=== PATIENT | male | born 1955 | race Caucasian/White ===

== ENCOUNTER 2019-09-09 13:50 | Day surgery (SDC) | payer OTHER, SELFPAY ==
[2019-09-09] VITALS (8 sets, daily range): BP systolic 120–142; BP diastolic 69–84; PULSE 65–74; RESP 10–16; TEMP 36–36.4; O2SAT 94–99; BMI 32.3
--- NOTE | 2019-09-09 | DI.RAD.S_ITS ---
PROCEDURE: XR ABDOMEN MIN 2V INDICATIONS: LEFT URETEROSCOPYIC LASER LITHOTRIPSY TECHNIQUE: 2 views of the abdomen were acquired. COMPARISON: None. FINDINGS: Spot fluoroscopic images demonstrating contrast opacified left renal collecting system and ureter. Screw fixation of the left sacroiliac joint noted. Dictated by: Kolby Leger M.D. on 09/10/2019 at 9:39 Approved by: Kolby Leger M.D. on 09/10/2019 at 9:40
--- NOTE | 2019-09-09 | PATH_ITS ---
[facility] Accession Number: [id number] . 01 Material submitted: . bladder - BLADDER STONES . 02 Diagnosis: Bladder Stones: Scant strips of superficial urothelium. Multiple calculi identified grossly. No evidence of neoplasm. MRV 09/11/2019 1201 Local . 02 Electronically signed: . Arian Goldman MD, PhD, Pathologist NPI- [id number] . 01 Gross description: . Received in formalin and labeled with bladder stones are multiple fragments of alex, hard, friable material measuring 1.6 x 1.0 x 0.4 cm in aggregate. The material is entirely submitted in aggregate in cassette A1. Prior to processing, the material will be placed in decal solution for 30 minutes. ([id number]) /MRV 09/10/2019 0920 Local . 02 Pathologist provided ICD-10: N10 . 02 CPT . 360236, [id number] Performed at: 01 [facility] [address], [place], [place] [id number] MD Santiago Singleton MD Phone: [phone] Performed at: 02 [facility] [address] [place], [place] [id number] MD Abigail Matute MD Phone: [phone]
--- NOTE | 2019-09-09 14:15 | DI.RAD.S_ITS ---
PROCEDURE: XR KUB INDICATIONS: pre op TECHNIQUE: One view of the abdomen acquired. COMPARISON: [facility], CR, XR ABDOMEN 1 VIEW, 08/28/2019, 12:53. FINDINGS: Surgical changes and devices: None. Bowel: Bowel gas pattern is normal. Soft tissues: No suspicious abdominal calcifications. Previously documented bladder calculus is now shifted to the right of midline when compared to prior plain film imaging 08/28/19. The bladder calculus measures an estimated 7 x 13 mm. Visualized solid organ contours appear normal in size. Bones: No suspicious bony lesions. IMPRESSION: A transverse screw crosses the left sacroiliac joint, and a previously identified bladder calculus also seen by CT scanning 08/16/19 is again seen within the bladder lumen, and a deviated from the midline rightward Dictated by: Yrn Broderick M.D. on 09/09/2019 at 14:56 Approved by: Yrn Broderick M.D. on 09/09/2019 at 14:58
--- NOTE | 2019-09-09 16:08 | PM.PREOP ---
Pre-operative Note Interval Note History & Physical reviewed/Exam performed by Physician: Yes Changes to H&P: No
[2019-09-09] MEDS: CEFAZOLIN 2 GM/100 ML FROZ.PIGGY IV (16:50)
--- NOTE | 2019-09-09 17:09 | SUR.OPER ---
Lithotomy on padded OR bed, head on pillow, arms secured on padded arm boards at <90 degrees abduction. Legs secured in padded yellow fins stirrups.
[2019-09-09] MEDS: IOPAMIDOL 15 ML VIAL INJ (17:52)
[2019-09-09] MEDS: BELLADONNA/OPIUM SUPPOSITORIES 1 EACH PR (18:16)
--- NOTE | 2019-09-09 18:18 | PM.OP.1 ---
Operative Date/Time/Diagnoses Date of procedure: 09/09/19 Time of procedure: 18:18 Pre-op diagnosis: 1. Mid left ureteral calculus. 2. Bladder calculus. Post-op diagnosis: same Procedure & Clinicians Procedure: 1. Cystoscopy and left retrograde pyelogram. 2. Cystoscopy and left ureteroscopic laser lithotripsy. 3. Cystoscopy and laser lithotripsy bladder calculus. Same procedure as scheduled: No (Left retrograde pyelogram performed due to non vis. on preop KUB) Indications: 1. Obstructing mid left ureteral calculus. 2. Bladder calculus. Surgeon: Sonia Hernandez Click Yes if Unassisted: Yes Anesthesia Type: General Operative Notes Findings: 1. Urethra-normal 2. External sphincter-coapted. 3. Prostate 4 cm length with moderate lateral lobe hyperplasia and a high median bar. 4. Bladder 1+ trabeculation with mulberry morphology bladder calculus Jimmy dependently. 5. Left retrograde pyelogram revealed minimal hydronephrosis and suggestion of a radial lucent density just above the transverse screw seen in AP view. 6. Left ureteroscopy indeed identified the index calculus at suspicious location seen on left retrograde pyelogram. Closure Type: not applicable Specimen(s): other (Fragments of bladder calculus.) Estimated Blood Loss (mL): 0 Blood products transfused: none Tourniquet time (min): 0 Procedure in detail: The patient was positioned supine and administered general anesthesia. He was then repositioned semi lithotomy in the lower abdomen genitalia and groin were prepped and draped in sterile fashion. The 22 Malaysian panendoscope was then passed into the lower urinary tract with findings as described above. A 5 Malaysian whistle-tip catheter was then advanced into the left ureteral orifice under direct fluoroscopic guidance. Left retrograde pyelogram was then performed with findings as described above. The whistle-tip catheter was then removed and a 0.35 guidewire was then advanced into the left collecting system under direct and fluoroscopic guidance. Over the wire a 12 Malaysian by 4 cm balloon dilating catheter was positioned across the left ureteropelvic junction. The balloon was inflated to 18 atmospheres and held in position for 5 minutes. Balloon was then deflated and backloaded off the wire in the saeed endoscope was removed. The semi rigid ureteral scope was then introduced into the lower urinary tract and advanced into the left ureter under direct and fluoroscopic guidance with the finding of the calculus where indicated. A 273 micron laser fiber was selected and all operating room personnel and patient were fitted with laser safety eyewear laser lithotripsy was then commenced with excellent subsequent stone fragmentation and much of the debris was irrigated and mechanically agitated from the ureteral lumen proper. The ureteral scope was then removed and the guidewire was front loaded on the saeed endoscoped. Then at the saeed endoscope was then advanced over the wire and placed into the bladder. Over this a 5 Malaysian by 24 cm double-J ureteral stent was advanced again under direct and fluoroscopic guidance. A retrieval line was left attached. Now a 1000 micron laser fiber was selected this was then advanced through the working port of the cystoscope the index bladder calculus was then fragmented and the and the stone debris and fragments were irrigated from the bladder a specimen was collected and submitted to the laboratory for routine crystallographic analysis. The bladder was then left partially filled and all instrumentation was removed. An 18 Malaysian Anderson catheter was then selected and advanced to the lower urinary track the balloon is inflated to 10 cc and the catheter was placed to gravity drainage the retrieval line was trimmed and appropriate length extending beyond the urethral meatus the catheter was then connected to gravity drainage. The patient was then repositioned in supine was awakened and transferred to [facility] awake and stable condition. Complications: none Post-operative Condition: stable Disposition: PACU Plan for aftercare: 1. Discharge home. 2. Remove catheter in 2-3 days with PVR in my office. 3. Remove left ureteral stent via retrieval line in 5-7 days. 4. Arrange outpatient metabolic stone risk evaluation 6-8 weeks.
[2019-09-09] MEDS: OXYCODONE IR 5 MG TABLET PO (19:18)
--- NOTE | 2019-09-09 20:20 | SUR.PHASEII ---
Discharge instructions reviewed with patient and spouse. Leg bag and aranda teaching given, verbal, written and demonstration. Patient's spouse expressed misgivings about changing the aranda large bag to a leg bag. Patient allowed to discharge in a clean gown. Small amt of bloody drainage noted from meatus upon standing, wash rag applied. Aranda draining thick dark pink fluid. PO fluids encouraged
== END 2019-09-09 20:08 | disposition home or self-care (01) ==
PROVIDERS: Referring Provider Specialist; Visit Provider Specialist
PROC: (CPT 52356; principal; 2019-09-09 15:00)
DX: N20.1 Calculus of ureter (principal); N21.0 Calculus in bladder; I10 Essential (primary) hypertension; G47.33 Obstructive sleep apnea (adult) (pediatric); Z87.820 Personal history of traumatic brain injury; N13.1 Hydronephrosis with ureteral stricture, not elsewhere classified; N40.0 Benign prostatic hyperplasia without lower urinary tract symptoms
CPT/HCPCS: 52356; 74018; 74019; 76000; J0690; J2704; J3010

== ENCOUNTER → 2025-02-03 12:57 | Outpatient (CLI) | payer OTHER, SELFPAY | LOC: RESP 12:59 | PROVIDERS: Referring Provider Family Medicine | DX: R05.3 Chronic cough (principal); R94.2 Abnormal results of pulmonary function studies | CPT/HCPCS: 94060; 94726; 94729 ==